=== PATIENT | male | born 1935 | race Caucasian/White ===

== ENCOUNTER 2020-10-28 07:33 | Day surgery (SDC) | payer MEDICARE, OTHER ==
--- NOTE | 2020-10-28 07:28 | PCM.PREANE ---
Preanesthetic Assessment - Anesthesia/Transfusion/Family Hx Anesthesia History: Prior Anesthesia Without Reaction Family History of Anesthesia Reaction: No Transfusion History: No Prior Transfusion(s) Intubation History: Unknown - Review of Systems General: No Symptoms Pulmonary: No Symptoms Cardiovascular: No Symptoms Gastrointestinal: No Symptoms Neurological: No Symptoms Other: Reports: None - Physical Assessment NPO Status Date: 10/28/20 NPO Status Time: 00:00 Height: 5 ft 10 in Weight: 188 lb ASA Class: 2 Mental Status: Alert & Oriented x3 Dentition: Reports: Normal Dentition ROM/Head Extension: Full Lungs: Clear to Auscultation, Normal Respiratory Effort Cardiovascular: Regular Rate, Regular Rhythm - Allergies Allergies/Adverse Reactions: Allergies Allergy/AdvReac Type Severity Reaction Status Date / Time No Known Allergies Allergy Verified 10/22/20 10:42 - Acknowledgements Pt an Appropriate Candidate for the Planned Anesthesia: Yes Alternatives and Risks of Anesthesia Discussed w Pt/Guardian: Yes Pt/Guardian Understands and Agrees with Anesthesia Plan: Yes PreAnesthesia Questionnaire HEENT History: Reports: Glaucoma, Other (See Below) Other HEENT History: wears glasses Cardiovascular History: Reports: CAD, Heart Murmur, Hypertension, [place] Other Cardiovascular History: [place] in 2010- no chest pain or SOB since Respiratory History: Reports: None Gastrointestinal History: Reports: None Genitourinary History: Reports: None Musculoskeletal History: Reports: Arthritis, Fracture Other Musculoskeletal History: hx of fx ankle Neurological History: Reports: Vertigo Psychiatric History: Reports: None Endocrine/Metabolic History: Reports: None Hematologic History: Reports: None Immunologic History: Reports: None Oncologic (Cancer) History: Reports: Malignant Melanoma Other Oncologic History: skin cancer removed from face Dermatologic History: - Past Surgical History Head Surgeries/Procedures: Reports: None Cardiovascular Surgical History: Reports: Coronary Artery Bypass Respiratory Surgical History: Reports: None GI Surgical History: Reports: Appendectomy, Hernia, Inguinal Male Surgical History: Reports: None Dermatological Surgical History: Reports: Skin Biopsy - SUBSTANCE USE Tobacco Use Status *Q: Never Tobacco User Recreational Drug Use History: No - HOME MEDS Home Medications: Home Meds Aspirin [Adult Low Dose Aspirin EC] 81 mg PO DAILY 10/22/20 [History] Furosemide 20 mg PO DAILY 10/22/20 [History] Latanoprost/Pf [Latanoprost 0.005% Eye Drop] 1 drop EYEBOTH DAILY 10/22/20 [History] Meclizine HCl 25 mg PO ASDIRECTED PRN 10/22/20 [History] Metoprolol Tartrate 12.5 mg PO BID 10/22/20 [History] Naproxen Sodium [Aleve] 220 mg PO ASDIRECTED PRN 10/22/20 [History] Spironolactone [Aldactone] 12.5 mg PO BID 10/22/20 [History] Timolol Maleate/PF [Timolol Maleate 0.5% Eye Drop] 1 drop EYEBOTH DAILY 10/22/20 [History] atorvaSTATin [Lipitor] 40 mg PO DAILY 10/22/20 [History] lisinopriL [Lisinopril] 5 mg PO QAM 10/22/20 [History]
--- NOTE | 2020-10-28 09:38 | PCM.PREANE ---
Preanesthetic Assessment - Anesthesia/Transfusion/Family Hx Anesthesia History: Prior Anesthesia Without Reaction Family History of Anesthesia Reaction: No Transfusion History: No Prior Transfusion(s) Intubation History: Unknown - Review of Systems General: No Symptoms Pulmonary: No Symptoms Cardiovascular: No Symptoms Gastrointestinal: No Symptoms Neurological: No Symptoms Other: Reports: None - Physical Assessment NPO Status Date: 10/28/20 NPO Status Time: 00:00 Height: 5 ft 10 in Weight: 188 lb ASA Class: 3 Mental Status: Alert & Oriented x3 Airway Class: Mallampati = 2 Dentition: Reports: Normal Dentition ROM/Head Extension: Limited/Partial Lungs: Clear to Auscultation, Normal Respiratory Effort Cardiovascular: Regular Rate, Regular Rhythm - Lab Values: Laboratory Last Values SARS-CoV-2 RNA ([facility]RI[facility]IANO) NEGATIVE (NEGATIVE) 10/28/20 07:40 - Allergies Allergies/Adverse Reactions: Allergies Allergy/AdvReac Type Severity Reaction Status Date / Time No Known Allergies Allergy Verified 10/22/20 10:42 - Anesthesia Plan Pre-Op Medication Ordered: None - Acknowledgements Anesthesia Type Planned: General Anesthesia Pt an Appropriate Candidate for the Planned Anesthesia: Yes Alternatives and Risks of Anesthesia Discussed w Pt/Guardian: Yes Pt/Guardian Understands and Agrees with Anesthesia Plan: Yes Additional Comments: npo tob none etoh none htn 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 [place] 2010 no cp, sob,santa since cabg vertigo prn rx bmi 27 par no questions PreAnesthesia Questionnaire HEENT History: Reports: Glaucoma, Other (See Below) Other HEENT History: wears glasses Cardiovascular History: Reports: CAD, Heart Murmur, Hypertension, [place] Other Cardiovascular History: [place] in 2010- no chest pain or SOB since Respiratory History: Reports: None Gastrointestinal History: Reports: None Genitourinary History: Reports: None Musculoskeletal History: Reports: Arthritis, Fracture Other Musculoskeletal History: hx of fx ankle Neurological History: Reports: Vertigo Psychiatric History: Reports: None Endocrine/Metabolic History: Reports: None Hematologic History: Reports: None Immunologic History: Reports: None Oncologic (Cancer) History: Reports: Malignant Melanoma Other Oncologic History: skin cancer removed from face Dermatologic History: - Past Surgical History Head Surgeries/Procedures: Reports: None Cardiovascular Surgical History: Reports: Coronary Artery Bypass Respiratory Surgical History: Reports: None GI Surgical History: Reports: Appendectomy, Hernia, Inguinal Male Surgical History: Reports: None Dermatological Surgical History: Reports: Skin Biopsy - SUBSTANCE USE Tobacco Use Status *Q: Never Tobacco User Recreational Drug Use History: No - HOME MEDS Home Medications: Home Meds Aspirin [Adult Low Dose Aspirin EC] 81 mg PO DAILY 10/22/20 [History] Furosemide 20 mg PO DAILY 10/22/20 [History] Latanoprost/Pf [Latanoprost 0.005% Eye Drop] 1 drop EYEBOTH DAILY 10/22/20 [History] Meclizine HCl 25 mg PO ASDIRECTED PRN 10/22/20 [History] Metoprolol Tartrate 12.5 mg PO BID 10/22/20 [History] Naproxen Sodium [Aleve] 220 mg PO ASDIRECTED PRN 10/22/20 [History] Spironolactone [Aldactone] 12.5 mg PO BID 10/22/20 [History] Timolol Maleate/PF [Timolol Maleate 0.5% Eye Drop] 1 drop EYEBOTH DAILY 10/22/20 [History] atorvaSTATin [Lipitor] 40 mg PO DAILY 10/22/20 [History] lisinopriL [Lisinopril] 5 mg PO QAM 10/22/20 [History]
[2020-10-28] MEDS ORDERED: Lactated Ringers 1,000 ML IV SCH (09:45)
[2020-10-28] MEDS ORDERED: Propofol 200 MG/20 ML SDV ONE ×2 (09:51→09:55)
[2020-10-28] MEDS ORDERED: Lidocaine 2% 5 ML SDV ONE (09:52)
[2020-10-28] MEDS ORDERED: fentaNYL 100 MCG/2 ML SDV ONE (10:28)
[2020-10-28] MEDS ORDERED: Glycopyrrolate 0.2 MG/ML SDV ONE (10:55)
--- NOTE | 2020-10-28 11:08 | PCM.OPNOTE ---
- General Post-Op/Procedure Note Date of Surgery/Procedure: 10/28/20 Operative Procedure(s): colonoscopy. EGD with biopsies Findings: Normal colon Small hiatal hernia dictation number [id number] Pre Op Diagnosis: Dark stools Post-Op Diagnosis: small hiatal hernia. Normal colonoscopy Primary Surgeon: Adolfo Bryant Pathology: EGD biopsies Complications: None Condition: Good
--- NOTE | 2020-10-28 11:32 | PCM.POSTAN ---
POST ANESTHESIA ASSESSMENT - MENTAL STATUS Mental Status: Alert (no anesthetic problems), Oriented - VITAL SIGNS Vital Signs: Last Vital Signs Temp 97.2 F 10/28/20 09:06 Pulse 71 10/28/20 11:25 Resp 10 L 10/28/20 11:25 BP 117/63 10/28/20 11:25 Pulse Ox 96 10/28/20 11:25 - RESPIRATORY Respiratory Status: Respiratory Rate WNL, Airway Patent, O2 Saturation Stable - CARDIOVASCULAR CV Status: Pulse Rate WNL, Blood Pressure Stable - GASTROINTESTINAL GI Status: No Symptoms - POST OP HYDRATION Hydration Status: Adequate & Stable
--- NOTE | 2020-10-28 11:50 | PCM48HPAN ---
Post Anesthesia Note - EVALUATION WITHIN 48HRS OF ANESTHETIC Vital Signs in Normal Range: Yes Patient Participated in Evaluation: Yes Respiratory Function Stable: Yes Airway Patent: Yes Cardiovascular Function Stable: Yes Hydration Status Stable: Yes Pain Control Satisfactory: Yes Nausea and Vomiting Control Satisfactory: Yes Mental Status Recovered: Yes Vital Signs: Last Vital Signs Temp 97.7 F 10/28/20 11:30 Pulse 69 10/28/20 11:30 Resp 14 10/28/20 11:30 BP 119/57 L 10/28/20 11:30 Pulse Ox 98 10/28/20 11:30
--- NOTE | 2020-10-29 07:32 | OR ---
SURGEON: CELSO BARAJAS MD DATE OF PROCEDURE: 10/28/2020 PREOPERATIVE DIAGNOSIS: Dark stools. POSTOPERATIVE DIAGNOSES: 1. Small hiatal hernia. 2. Normal colonoscopy. PRIMARY SURGEON: Celso Barajas MD ANESTHESIA: With Anesthesia. Extent of the EGD was to the second part of the duodenum. Extent of the colonoscopy is to the cecum. BOWEL PREP: Excellent. LIMITATIONS: None. REASON FOR PROCEDURE: The patient is a pleasant 85-year-old gentleman who had an episode of vague abdominal discomfort and then had some large loose bowel movement that was black. He was started on some Protonix. He said his bowel movements the next day were slightly dark and then returned to normal. He has no further issues. He denies any blood in his stool. Denies any family history of colon cancer. This will be his first colonoscopy. The patient also denies any issues with heartburn or indigestion. He denies any swallowing issues. PROCEDURE IN DETAIL: A detailed physical exam was performed. The major risks and benefits associated with the procedure were explained to the patient in detail. The patient verbalized understanding of the same. The patient was then connected to appropriate monitoring device and IV started. EKG, pulse, pulse oximetry, blood pressure, and capnography were monitored throughout the procedure. Continuous oxygen and sedation were provided by the anesthesiologist. The patient was placed in left lateral decubitus position and sedation began. After adequate sedation was achieved, an upper endoscope was advanced under direct visualization without any difficulty in the upper GI tract. Anatomy and mucosa of the esophagus, GE junction, stomach, pylorus, and at least the second part of duodenum were inspected. We passed the pylorus and duodenum to take a somewhat low sharper turn, but otherwise, the duodenum appeared normal. out to do biopsies of the area of what looked to be the duodenum and pylorus area. Also took biopsies of the antrum to check for H pylori. Scope was continued to be withdrawn. Scope was retroflexed within the stomach, no gastritis was seen. The patient did have what appeared to be a very small hiatal hernia. The GE junction was at about 36 cm from the incisor. The Z-line appeared intact with a good squamocolumnar junction. Scope was brought back into the stomach. Stomach was deinsufflated. Scope was brought back through the esophagus. Esophagus appeared normal. Gloves and scopes were changed. Now, a rectal exam was done. No rectal masses or polyps were felt. Now, a well- lubricated Olympus colonoscope was entered in the rectum and advanced under direct visualization to the level of the cecum. Cecum was identified by both visual and anatomic landmarks. Photographs were taken of the cecal cap. Scope was then slowly withdrawn in somewhat circular fashion looking at the color, texture, anatomy, and integrity of the mucosa from the cecum to the anal canal. The patient had an excellent bowel prep. Very minimal suction-irrigation was needed. No polyps were seen. Scope was then retroflexed in the rectum. Scope was completely removed and the procedure was terminated. ENDOSCOPIC DIAGNOSES: 1. Very small hiatal hernia. 2. Normal colonoscopy. RECOMMENDATIONS: Followup colonoscopy in fact will be needed because of the patient's age unless he has another episode of bleeding or change in bowel habits. The patient will follow up in clinic to go over his EGD biopsies. MARJORIE / EFRAIN /[id number]
== END 2020-10-28 12:05 | disposition home or self-care (01) ==
LOC: MW.SDS 07:33
PROVIDERS: ATTEND Surgery
DX: K29.50 Unspecified chronic gastritis without bleeding (principal); K44.9 Diaphragmatic hernia without obstruction or gangrene; K31.89 Other diseases of stomach and duodenum; K62.5 Hemorrhage of anus and rectum; R19.5 Other fecal abnormalities; I25.10 Atherosclerotic heart disease of native coronary artery without angina pectoris; I25.2 Old myocardial infarction; I10 Essential (primary) hypertension; Z01.812 Encounter for preprocedural laboratory examination; Z20.822 Contact with and (suspected) exposure to COVID-19; Z79.82 Long term (current) use of aspirin; Z80.0 Family history of malignant neoplasm of digestive organs; Z95.1 Presence of aortocoronary bypass graft
CPT/HCPCS: 43239; 45378; J2704; J3010; J3490; J7120; U0002; 00813; 88305; 88312